=== PATIENT | female | born 1990 | race Caucasian/White ===

== ENCOUNTER 2019-12-03 00:18 | Emergency (ER) | payer BC ==
[~2019-12-03] VITALS: Ht 160 cm; Wt 79.5 kg
[2019-12-03 00:42] VITALS: BP 194/120
[2019-12-03] MEDS ORDERED: LISD30TA PO (00:57)
[2019-12-03] MEDS ORDERED: AMLO5TAB16 PO (00:57)
[2019-12-03] MEDS ORDERED: HYDR12.55 PO (00:57)
[2019-12-03] MEDS ORDERED: MAGN400C PO (00:57)
[2019-12-03] MEDS ORDERED: CHOL20004 PO (00:57)
[2019-12-03] MEDS ORDERED: GUAN2TAB14 PO (00:57)
[2019-12-03] MEDS ORDERED: RIBO100T6 PO (00:57)
[2019-12-03] MEDS ORDERED: SUMAtriptan succ. 6 MG/0.5ml vial SQ ONE (02:55)
[2019-12-03] MEDS ORDERED: proCHLORperazine 10mg tablet PO ONE (02:55)
== END 2019-12-03 03:08 | disposition home or self-care (01) ==
LOC: ER 00:19
DX: G43.909 Migraine, unspecified, not intractable, without status migrainosus (principal); I10 Essential (primary) hypertension; F41.9 Anxiety disorder, unspecified; Z88.8 Allergy status to other drugs, medicaments and biological substances; Z79.899 Other long term (current) drug therapy
CPT/HCPCS: 96372; 99283; J3030; Q0164